=== PATIENT | female | born 1965 | race Caucasian/White ===

== ENCOUNTER 2018-03-12 22:12 | Emergency (ER) | payer MEDICARE, MEDICAID ==
[~2018-03-12] VITALS: Ht 172.7 cm; Wt 65.0 kg
[2018-03-12 22:20] VITALS: BP 116/73
[2018-03-12] MEDS ORDERED: KETOROLAC 30 MG/1 ML ONE (23:06)
[2018-03-12] MEDS ORDERED: KETOROLAC 30 MG/1 ML IM ONE (23:30)
== END 2018-03-12 23:47 | disposition home or self-care (01) ==
LOC: ED 23:22
DX: M25.562 Pain in left knee (principal)
CPT/HCPCS: 73564; 96372; 99284; J1885

== ENCOUNTER 2018-11-01 21:12 | Emergency (ER) | payer MEDICARE, MEDICAID ==
[~2018-11-01] VITALS: Ht 172.7 cm; Wt 78.8 kg
[2018-11-01 21:15] VITALS: BP 125/92
[2018-11-01] MEDS ORDERED: PROPARACAINE OPHTH 0.5%, 15ML ONE (21:57)
[2018-11-01] MEDS ORDERED: FLUORESCEIN OPHTHALMIC 1 MG STRIP ONE (21:57)
[2018-11-01] MEDS ORDERED: FLUORESCEIN/BENOXINATE 5 ML DROPS OP ONE (22:00)
[2018-11-01] MEDS ORDERED: PROPARACAINE OPHTH 0.5%, 15ML EACHEYE ONE (22:00)
--- NOTE | 2018-11-01 23:01 | NUR ---
ANN RN: Patient/Caregiver given discharge instructions and they have confirmed that they understand the instructions. Patient ambulatory with steady gait.
== END 2018-11-01 23:03 | disposition home or self-care (01) ==
LOC: ED 21:42
DX: H10.021 Other mucopurulent conjunctivitis, right eye (principal); J20.8 Acute bronchitis due to other specified organisms; G40.909 Epilepsy, unspecified, not intractable, without status epilepticus; Z79.899 Other long term (current) drug therapy
CPT/HCPCS: 71046; 99283

== ENCOUNTER 2019-07-09 22:11 | Emergency (ER) | payer MEDICARE, MEDICAID ==
[~2019-07-09] VITALS: Ht 172.7 cm; Wt 99.9 kg
--- NOTE | 2019-07-09 22:34 | NUR ---
assessment made. chart up for MD to see.
--- NOTE | 2019-07-09 22:47 | NUR ---
PA at bedside.
[2019-07-09] MEDS ORDERED: ACETAMINOPHEN 325 MG TABLET PO ONE (23:00)
[2019-07-09] MEDS ORDERED: DIAZEPAM 5 MG TABLET PO ONE (23:00)
[2019-07-09] MEDS ORDERED: DIAZEPAM 5 MG TABLET ONE (23:10)
[2019-07-09] MEDS ORDERED: ACETAMINOPHEN 325 MG TABLET ONE (23:10)
--- NOTE | 2019-07-09 23:12 | NUR ---
back from CT scan. medicated.
--- NOTE | 2019-07-10 00:34 | NUR ---
re-evaluation done. patient discharged with prescription and instruction. verbalized understanding.
[2019-07-10 00:37] VITALS: BP 124/73
== END 2019-07-10 00:38 | disposition home or self-care (01) ==
LOC: ED 23:31
DX: S16.1XXA Strain of muscle, fascia and tendon at neck level, initial encounter (principal); R25.2 Cramp and spasm; W01.198A Fall on same level from slipping, tripping and stumbling with subsequent striking against other object, initial encounter; Y93.89 Activity, other specified; Y92.89 Other specified places as the place of occurrence of the external cause; Y99.8 Other external cause status
CPT/HCPCS: 72125; 99284

== ENCOUNTER 2021-01-06 00:41 | Emergency (ER) | payer MEDICAID, MEDICARE ==
[~2021-01-06] VITALS: Ht 172.7 cm; Wt 87.0 kg
[2021-01-06 01:19] LABS: BASOPHILS % (AUTO) 1 % (0-1); EOSINOPHILS % (AUTO) 1 % (1-7); LYMPHOCYTES % (AUTO) 40 % (22-44); MEAN CORPUSCULAR HEMOGLOBIN 30.7 pg (27.0-34.8); MEAN CORPUSCULAR HGB CONC 34.1 g/dL (32.4-35.8); MEAN PLATELET VOLUME 7.8 fL (7.4-10.4); MONOCYTES % (AUTO) 8 % (2-9); NEUTROPHILS % (AUTO) 50 % (42-75); PLATELET COUNT 261 x10^3/uL (130-400); RED BLOOD COUNT 4.74 x10^6/uL (3.82-5.3); RED CELL DISTRIBUTION WIDTH 13.8 % (9.6-15.2)
[2021-01-06 01:30] LABS: ALANINE AMINOTRANSFERASE 21 U/L (12-78); ALBUMIN 3.6 g/dL (3.4-5.0); ANION GAP 8 mmol/L (5-15); CALCIUM 9.2 mg/dL (8.5-10.1); CHLORIDE 106 mmol/L (98-107); CREATININE 0.71 mg/dL (0.55-1.02)
[2021-01-06 01:33] LABS: ALKALINE PHOSPHATASE 70 U/L (45-117); BILIRUBIN,TOTAL 0.3 mg/dL (0.2-1.0); TOTAL PROTEIN 7.6 g/dL (6.4-8.2)
--- NOTE | 2021-01-06 02:23 | NUR ---
PT C/O OF BEING INCONTINENT MORE RECENTLY. STATES YESTERDAY SHE WET HERSELF REALLY BAD. PT REPORTS BEING WORRIED BECAUSE HER MOM FROM URETHRAL CANCER. ATTACHED TO MONIOTORS. SLY. FERNY. BED IN LOW, RAILS ENGAGED. CALL LIGHT ON LAP.
[2021-01-06 02:43] LABS: MICROSCOPIC AUTO
--- NOTE | 2021-01-06 03:02 | NUR ---
break rn: Patient is resting comfortably in bed. Bed in lowest, rails engaged, call light on lap. Vital Signs within normal limits. eyes closed, even and unlabored respiration noted at this time, chart up for recheck, WCTOBIN.
[2021-01-06 03:28] VITALS: BP 127/73
--- NOTE | 2021-01-06 03:44 | NUR ---
Patient/Caregiver given discharge instructions and they have confirmed that they understand the instructions. Patient ambulatory with steady gait. NAD, all questions answered appropriately, denies additional needs at this time. No personal belongings left in room after discharge.
== END 2021-01-06 03:45 | disposition home or self-care (01) ==
LOC: ED 03:00
DX: R32 Unspecified urinary incontinence (principal); G40.909 Epilepsy, unspecified, not intractable, without status epilepticus
CPT/HCPCS: 36415; 80053; 81001; 85025; 87086; 99283